=== PATIENT | female | born 2000 | race Caucasian/White ===

== ENCOUNTER 2021-07-26 19:26 | Emergency (ER) | payer OTHER ==
[~2021-07-26] VITALS: Ht 165.1 cm; Wt 60.5 kg
[2021-07-26] MEDS ORDERED: CEPHALEXIN500 M1 PO (20:37)
[2021-07-26 21:16] VITALS: BP 100/83
== END 2021-07-26 21:35 | disposition home or self-care (01) ==
LOC: ED 19:26
DX: H65.03 Acute serous otitis media, bilateral (principal); J30.2 Other seasonal allergic rhinitis; Z28.310 Unvaccinated for COVID-19